=== PATIENT | male | born 1950 | race Caucasian/White ===

== ENCOUNTER 2021-06-22 09:53 | Outpatient (CLI) | payer MEDICARE | END 2021-06-22 09:54 | disposition home or self-care (01) | LOC: CSHULT 09:53 | PROVIDERS: ATTEND Urology | DX: R33.9 Retention of urine, unspecified (principal); N28.9 Disorder of kidney and ureter, unspecified; R39.198 Other difficulties with micturition | CPT/HCPCS: 76770 ==

== ENCOUNTER 2021-10-27 08:08 | Outpatient (CLI) | payer OTHER | END 2021-10-27 08:09 | disposition home or self-care (01) | LOC: CSHWCC 08:08 | PROVIDERS: ATTEND Nurse Practitioner Family | DX: T81.89XD Other complications of procedures, not elsewhere classified, subsequent encounter (principal) | CPT/HCPCS: 97139; 97605; G0463; 99203 ==

== ENCOUNTER 2021-10-29 09:36 | Outpatient (CLI) | payer OTHER | END 2021-10-29 09:37 | disposition home or self-care (01) | LOC: CSHWCC 09:36 | PROVIDERS: ATTEND Nurse Practitioner Family | DX: T87.89 Other complications of amputation stump (principal); Z89.421 Acquired absence of other right toe(s) | CPT/HCPCS: 97605 ==

== ENCOUNTER 2021-11-03 14:38 | Outpatient (CLI) | payer OTHER | END 2021-11-03 14:39 | disposition home or self-care (01) | LOC: CSHWCC 14:38 | PROVIDERS: ATTEND Preventive Medicine Undersea and Hyperbaric Medicine | DX: T81.89XD Other complications of procedures, not elsewhere classified, subsequent encounter (principal) | CPT/HCPCS: 97605 ==

== ENCOUNTER 2021-11-05 13:19 | Outpatient (CLI) | payer OTHER | END 2021-11-05 13:20 | disposition home or self-care (01) | LOC: CSHWCC 13:19 | PROVIDERS: ATTEND Preventive Medicine Undersea and Hyperbaric Medicine | DX: T87.89 Other complications of amputation stump (principal); Z89.421 Acquired absence of other right toe(s) | CPT/HCPCS: 97605 ==

== ENCOUNTER 2021-11-09 13:05 | Outpatient (CLI) | payer OTHER | END 2021-11-09 13:06 | disposition home or self-care (01) | LOC: CSHWCC 13:05 | PROVIDERS: ATTEND Preventive Medicine Undersea and Hyperbaric Medicine | DX: T87.89 Other complications of amputation stump (principal); Z89.421 Acquired absence of other right toe(s) | CPT/HCPCS: 99213; G0463 ==

== ENCOUNTER 2021-11-12 10:52 | Outpatient (CLI) | payer OTHER | END 2021-11-12 10:53 | disposition home or self-care (01) | LOC: CSHWCC 10:52 | PROVIDERS: ATTEND Nurse Practitioner Family | DX: T87.89 Other complications of amputation stump (principal); Z89.421 Acquired absence of other right toe(s) ==

== ENCOUNTER 2021-11-22 09:41 | Outpatient (CLI) | payer OTHER | END 2021-11-22 09:42 | disposition home or self-care (01) | LOC: CSHWCC 09:41 | PROVIDERS: ATTEND Preventive Medicine Undersea and Hyperbaric Medicine | DX: T87.89 Other complications of amputation stump (principal); Z89.421 Acquired absence of other right toe(s) | CPT/HCPCS: 97139; G0463; 99212 ==

== ENCOUNTER 2021-12-06 14:57 | Outpatient (CLI) | payer OTHER | END 2021-12-06 14:58 | disposition home or self-care (01) | LOC: CSHWCC 14:57 | PROVIDERS: ATTEND Preventive Medicine Undersea and Hyperbaric Medicine | DX: T81.89XD Other complications of procedures, not elsewhere classified, subsequent encounter (principal); Z89.421 Acquired absence of other right toe(s) | CPT/HCPCS: 97139; G0463; 99212 ==